=== PATIENT | female | born 1990 | race Caucasian/White ===

== ENCOUNTER 2016-11-11 04:17 | Inpatient (IN) | payer BC ==
[2016-11-11] MEDS ORDERED: OXYTOCIN IN NS 334 ML IV PRN (08:22)
[2016-11-11] MEDS ORDERED: IV START KIT ONE (08:28)
[2016-11-11] MEDS ORDERED: OXYTOCIN 10 UNITS/ML VIAL ONE (08:28)
[2016-11-11] MEDS ORDERED: LIDOCAINE Viscous 2% 15 ML UDCUP ONE (08:29)
[2016-11-11] MEDS ORDERED: LACTATED RINGERS 1,000 ML ONE (08:29)
[2016-11-11] MEDS ORDERED: OXYTOCIN IN NS 500 ML IV ONE (08:29)
[2016-11-11] MEDS ORDERED: MINERAL OIL 25 ML BOT ONE (08:29)
[2016-11-11] MEDS ORDERED: LIDOCAINE 1% (PRES FREE) 30 ML VIAL ONE (08:29)
[2016-11-11] MEDS ORDERED: PUMP TUBING ONE (08:29)
[2016-11-11] MEDS: LACTATED RINGERS 1,000 ML IV PRN ×4 (08:45→13:21)
[2016-11-11] MEDS ORDERED: EPIDURAL PUMP SET ONE (09:01)
[2016-11-11] MEDS ORDERED: FENTANYL/ROPIVACAINE EPIDURAL 250 ML EP ONE (09:02)
[2016-11-11 09:13] LABS: HEMATOCRIT 38.7 % (37.0-47.0); HEMOGLOBIN 13.7 gm/l (12.0-16.0); MEAN CELL VOLUME 91.1 fl (81.0-99.0); MEAN CORPUSCULAR HEMOGLOBIN 32.2 pg (27.0-31.0); MEAN CORPUSCULAR HGB CONC 35.4 g/dl (33.0-37.0); RED CELL DISTRIBUTION WIDTH 12.1 % (11.5-14.5)
[2016-11-11] MEDS ORDERED: LACTATED RINGERS 500 ML IV PRN (10:04)
[2016-11-11] MEDS ORDERED: SODIUM CHLORIDE 0.9% 500 ML IV PRN (10:04)
[2016-11-11] MEDS ORDERED: METOCLOPRAMIDE HCL 5 MG/ML 2ML VIAL IV PRN (10:04)
[2016-11-11] MEDS ORDERED: ONDANSETRON 4 MG/2ML 2 ML VIAL IV PRN (10:04)
[2016-11-11] MEDS ORDERED: DIPHENHYDRAMINE HCL 50 MG/1 ML VIAL IV PRN (10:04)
[2016-11-11] MEDS ORDERED: NALOXONE HCL 0.4 MG/ML VIAL IV PRN (10:04)
[2016-11-11] MEDS ORDERED: EPHEDRINE SULFATE 50 MG/ML 1ML VIAL IV PRN (10:04)
[2016-11-11] MEDS ORDERED: NALBUPHINE HCL 20 MG/ML AMP IV PRN (10:04)
[2016-11-11] MEDS ORDERED: EPIDURAL PROCEDURE TRAY ONE (10:18)
--- NOTE | 2016-11-11 10:36 | PCMAN ---
OB Admission Note - History : 1 Term: 0 : 0 Abortions (S&E): 0 Livin Gestational Age (weeks): 39 Days (#/7): 4 Admit Cervical Dilation:: 3 Admit Cervical Effacement (%):: 80 Admit Station:: -1 Membrane Status: Intact Rupture (Date): 11/11/16 Contractions: Yes Contraction Frequency:: q3-5 min Heart Rate:: 115 Status:: category I EFW:: 7.5 pounds - Labs GBS Status: Negative - Physical Exam General: Afebrile Psych/Mental Status: Mood/Affect Appropriate Neurological: Grossly Intact HEENT: Atraumatic, PERRLA, EOMI, Mucous membr. moist/pink Lungs: Clear to Auscultation Bilaterally, Normal Air Movement Cardiovascular: Regular Rate and Rhythm, Normal S1, Normal S2, No Murmur Genitourinary: Normal Female Genitalia, Other (checked pt after epidural placement. Cx: 5/90%/-1, AROM meconium fluid, moderate amount.) - Problems (1) with 39 completed weeks gestation Status: Acute Code: Z3A.39Assessment/Plan: Pt in labor at 39 4/7 weeks with adequate progress. Epidural in place. Await ; rountine monitoring.
[2016-11-11] MEDS ORDERED: FENTANYL/ROPIVACAINE EPIDURAL 250 ML EP SCH (11:00)
[2016-11-11 11:15] VITALS: BMI 31.4
[2016-11-11] MEDS: LACTATED RINGERS 1,000 ML IV SCH (11:28)
--- NOTE | 2016-11-11 17:04 | PCMDEL ---
Delivery Note - Labor 1st stage (hr/min):: 7 hrs / 48 min 2nd stage (hr/min):: 1 hr / 6 min 3rd stage (hr/min):: 0 hr/ 7 min Total (hr/min):: 9 hrs/ 1 min Pushed (hr/min):: 1 hour - Delivery Delivery (Date): 11/11/16 Delivery (Time): 16:02 Gender: Male Presentation: Cephalic Position: OA Umbilical Cord: 3 Vessel Delayed Cord Clamping:: < 1-2 min 1 Minute Total: 9 5 Minute Total: 9 Placenta:: complete and spontaneous EBL:: 200 ml Perineum:: 2nd degree ML lac Suture:: 3-0 vicryl Anesthesia/Meds:: epidural Length ROM:: 5 hr/43 min Comments:: 26 yr old G1 now P1 at 39 4/7 weeks who presented in labor. Infant male born over 2nd degree ML laceration repaired in usual fashion with 3-0 vicryl.
[2016-11-11] MEDS ORDERED: LANOLIN 50 APPLIC/7G TUBE TP PRN (17:14)
[2016-11-11] MEDS ORDERED: OXYCODONE HCL 5 MG TABLET PO PRN (17:14)
[2016-11-11] MEDS ORDERED: BENZOCAINE/MENTHOL 60 APPLIC/BOT TP PRN (17:14)
[2016-11-11] MEDS ORDERED: OXYTOCIN IN NS 167 ML IV PRN (17:14)
[2016-11-11] MEDS: IBUPROFEN 800 MG TABLET PO PRN (21:08)
[2016-11-12] MEDS: IBUPROFEN 800 MG TABLET PO PRN ×2 (06:23→12:40)
[2016-11-12 07:23] LABS: HEMATOCRIT 34.5 % (37.0-47.0); HEMOGLOBIN 11.8 gm/l (12.0-16.0)
[2016-11-12] MEDS: DOCUSATE SODIUM 100 MG CAPSULE PO SCH (08:54)
[2016-11-12] MEDS: HYDROCODONE/ACETAMINOPHEN 5/325MG TABLET PO PRN ×2 (08:54→12:40)
--- NOTE | 2016-11-12 10:47 | PDOC44 ---
- Subjective Day: 1 Reports Flatus, Reports Pain Tolerable, Reports , Reports Lochia Light - Objective Temp Pulse Resp BP Pulse Ox 98.3 F 72 16 121/58 11/12/16 08:09 11/12/16 08:09 11/12/16 08:09 11/12/16 08:09 Lab Results 11/12/16 07:00 Hgb 11.8 L Hct 34.5 L Current Medications Generic Name Dose Route Start Last Admin Trade Name Freq PRN Reason Stop Dose Admin Acetaminophen/Hydrocodone Bitart 1 - 2 tab 11/11/16 17:14 11/12/16 08:54 [place] 5/325 PO 1 tab Q4H PRN Administration Pain (Moderate) Benzocaine/Menthol 1 applic 11/11/16 17:14 11/11/16 21:08 Dermoplast TP 1 applic PRN PRN Administration Patient Comfort Docusate Sodium 100 mg 11/12/16 09:00 11/12/16 08:54 Colace PO 100 mg DAILY ALISSA Administration Emollient Ointment 1 applic 11/11/16 17:14 11/11/16 21:07 Pfn-D-Apipom TP 1 applic PRN PRN Administration sore nipples Ibuprofen 800 mg 11/11/16 17:14 11/12/16 06:23 Motrin PO 800 mg Q6H PRN Administration Pain (Mild) Oxycodone HCl 5 - 10 mg 11/11/16 17:14 Roxicodone PO Q3H PRN Pain (Severe) Sodium Chloride 10 ml 11/11/16 17:14 Normal Saline 10ml Flush IV PRN PRN IV Flush Sodium Chloride 10 ml 11/12/16 01:00 11/11/16 21:09 Normal Saline 10ml Flush IV 10 ml Q8HR ALISSA Administration - Physical Exam General: Afebrile Psych/Mental Status: Mood/Affect Appropriate, Judgment/Insight Intact, Bonding Well Neurological: Grossly Intact, Alert, Oriented x 4, Normal Speech, Normal Reflexes, Cranial Nerves 3-12 Intact HEENT: Atraumatic, PERRLA, EOMI, Mucous membr. moist/pink Lungs: Clear to Auscultation Bilaterally, Normal Air Movement Cardiovascular: Regular Rate and Rhythm, Normal S1, Normal S2, No Murmur Fundus: Firm, Below Umbilicus Abdomen: Normal Bowel Sounds Rectal Exam: Deferred Extremities: Full ROM, Normal Cap Refill, Normal Pulses Skin: Normal Color, Warm, Dry, Intact - Problems:Assessment/Plan (1) with 39 completed weeks gestation Status: AcuteAssessment/Plan: Delivered. (2) (spontaneous vaginal delivery) Status: Acute Disposition: Stable, Anticipate DC Home Tomorrow
[2016-11-12] MEDS: LACTATED RINGERS 1,000 ML IV SCH (15:23)
[2016-11-13] MEDS: IBUPROFEN 800 MG TABLET PO PRN ×2 (00:09→13:01)
[2016-11-13] MEDS: HYDROCODONE/ACETAMINOPHEN 5/325MG TABLET PO PRN ×3 (00:10→13:58)
[2016-11-13 08:40] VITALS: BP 116/68
--- NOTE | 2016-11-13 11:21 | PDOC39B ---
Hospital Course: ADMIT DATE: 11/11/16 DISCHARGE DATE: 11/13/2016 ADMISSION DIAGNOSES: Labor PROCEDURES: Normal vaginal delivery with 2nd degree repair HISTORY OF PRESENT ILLNESS: 26 year old G1 T0 L0 at 39 weeks 4 days presenting with onset of active labor. HOSPITAL COURSE: The patient progressed to with epidural pain relief. Please see delivery note for details. By day of discharge the patient is ambulating, eating, voiding, and passing flatus without difficulty. Pain is controlled and lochia is appropriate. She is . - Physical Exam Vital Signs: Temp Pulse Resp BP Pulse Ox 97.6 F 67 15 116/68 11/13/16 08:33 11/13/16 08:33 11/13/16 08:33 11/13/16 08:33 General: Afebrile Psych/Mental Status: Mood/Affect Appropriate, Judgment/Insight Intact, Bonding Well Neurological: Grossly Intact, Alert, Oriented x 4, Normal Speech, Cranial Nerves 3-12 Intact HEENT: Atraumatic, PERRLA, EOMI, Mucous membr. moist/pink Lungs: Clear to Auscultation Bilaterally, Normal Air Movement Cardiovascular: Regular Rate and Rhythm, Normal S1, Normal S2, No Murmur Breast: Nipples Intact Fundus: Firm, Below Umbilicus Abdomen: Normal Bowel Sounds Lochia: Light Rectal Exam: Deferred Extremities: Full ROM, Normal Cap Refill, Normal Pulses - Discharge Diagnosis (1) with 39 completed weeks gestation Status: AcuteAssessment/Plan: Home today. (2) (spontaneous vaginal delivery) Status: AcuteAssessment/Plan: Home today with baby. - Discharge Plan Condition: Good Disposition: Home Additional Instructions: Discharge home today with . Vaginal rest times 6 weeks. Other activities to gradually increase as tolerated. Regular diet. Prescriptions: Docusate Sodium [COLACE 100 MG CAPSULE (SHF)] 100 mg PO DAILY #30 Ibuprofen [IBUPROFEN 800 MG TABLET (SHF)] 800 mg PO Q6H PRN #90 PRN Reason: Pain (Mild) Hydrocodone Bit/Acetaminophen [NORCO 5/325 MG TABLET (SHF)] 1 - 2 tab PO Q4H PRN #20 PRN Reason: Pain (Moderate) Follow-Up: Deanne Bray MD [Staff Physician] - 12/22/16 1:15 pm (for 6 week check up)
[2016-11-13] MEDS: DOCUSATE SODIUM 100 MG CAPSULE PO SCH (13:01)
== END 2016-11-13 15:40 | disposition home or self-care (01) | DRG 775 ==
LOC: FBC 04:17 → FBCOUT 04:17 → FBC 08:16 → FBCOUT 08:16
PROVIDERS: ADMIT Family Medicine; ATTEND Family Medicine
PROC: 10E0XZZ Delivery of Products of Conception, External Approach (ICD-10-PCS; principal; 2016-11-11)
PROC: 0KQM0ZZ Repair Perineum Muscle, Open Approach (ICD-10-PCS; 2016-11-11)
PROC: 10907ZC Drainage of Amniotic Fluid, Therapeutic from Products of Conception, Via Natural or Artificial Opening (ICD-10-PCS; 2016-11-11)
DX: O70.1 Second degree perineal laceration during delivery (principal); Z37.0 Single live birth; O77.0 Labor and delivery complicated by meconium in amniotic fluid; Z3A.39 39 weeks gestation of pregnancy

== ENCOUNTER 2016-11-16 16:05 | Outpatient (CLI) | payer BC | END 2016-11-16 16:06 | disposition home or self-care (01) | LOC: BABIESSH 16:05 | PROVIDERS: ATTEND Family Medicine | DX: Z39.1 Encounter for care and examination of lactating mother (principal) ==